=== PATIENT | male | born 1940 | race African-American/Black ===

== ENCOUNTER 2024-02-06 10:23 | Emergency (ER) | payer OTHER, SELFPAY ==
[2024-02-06 10:33] VITALS: BP 146/82
--- NOTE | 2024-02-06 11:38 | ED.GENMED ---
History of Present Illness
General
Chief Complaint: Skin Problem
Source: patient
Exam Limitations: none
Time Seen by Provider: 02/06/24 10:41
Nursing documentation reviewed up to this point in time: agreed with
Travel History
Have you had any contact with someone who has COVID-19?: No
Do you have any symptoms of coronavirus? Fever > 100 degrees, chills, cough, shortness of breath, sore throat, loss of taste or smell, muscle aches, or headache?: No
History of Present Illness
History of Present Illness:
83 y/o M with h/o NIDDM
here with left thumb laceration partial skin avulsion of fingertip when he was at home using a circular saw
no pain, bleeding controlled
no deficits to sensation or movement
he thinks he is UTD on tetanus
and does not wish to get another one
Past History
Past History
ED Past Medical History: Arrthythmia (Atrial fibrillation), HTN, Hypercholesterolemia and NIDDM
Social History
Tobacco: Non-smoker
Drug: None
Review of Systems
Review of Systems
Allergies reviewed?: Yes
All Other Systems: Not applicable
Phy Exam
Physical Exam
Physical Exam:
GENERAL: Alert , in no apparent distress, comfortable at rest
HEAD: NCAT
CV: cp refill intact radial pulse normal
NEUROLOGICAL: Alert and oriented, no focal neuro deficits, , 5/5 strength, sensation intact,
SKIN: Warm and dry, irregular flap partial avulsino
MUSCULOSKELETAL: mild STS right ankle with tenderness to malleolus medially; pain with inversion and eversion;
no tenderness at the base of the 5th metatarsal, no other foot tenderness
no knee/prox tib/fib tenderness, full painless ROM;
PSYCH: Normal and appropriate interaction.
Course
Orders/Labs/Results
Orders:
Orders
02/06/24 10:35
Finger(s)/Thumb 2 View Lt [CR Finger(s)/thumb Min 2 Vw Lt] Urgent
Comment:
Reason For Exam: injury
Indicate Which Finger:: Thumb
02/06/24 12:16
Tetanus/Diphth/Acelpertussis [Adacel] 0.5 ml IM .ONCE ONE
Vital Signs
Initial and Last Documented VS:
Initial Vital Signs
Temp Pulse Resp BP Pulse Ox
98.2 F 84 16 146/82 98
02/06/24 10:33 02/06/24 10:33 02/06/24 10:33 02/06/24 10:33 02/06/24 10:33
Last Documented Vital Signs
Temp Pulse Resp BP Pulse Ox
98.2 F 85 20 129/74 98
02/06/24 10:33 02/06/24 12:44 02/06/24 12:44 02/06/24 12:44 02/06/24 12:44
Procedures
Laceration Closure
Left Thumb:
Status of Wound: clean
Size of Wound in cm: 2.5
Description of Wound Edges: ragged, flap-well vascularized and macerated
Preparation: cleaned with saline
Anesthesia: 1% Lidocaine and Digital-Regional
Revision/Debridement: minor revision and irrigate-direct pressure
Wound exploration: explored to base- no FB and no tendon involvement
Type of Closure: single layer closure
Skin Closure Material: 5-0 nylon
Number of sutures: 6
MDM/Problems Addressed
Differential Diagnosis Includes:
finger laceration, open fracture
MDM/Problems Addressed:
83 y/o M righ thand dominant
dm
here with left fingertip laceration/avulsion from a table saw
normal senstaion/nv intact
xray indep reviewed b yme, no bony involvement
anesthetized with digital block and irrigated/soaked
attempted repair though tissue macerated, did approximate wound
xeroform dressing
wound care instruction
*Critical Care Note
Total Time (30-74mins, 75-104mins- exclusive of procedures): Not Applicable
ED Attending Note
-
Portions of this chart may have been created with voice recognition software.� Occasional wrong word or��sound alike� substitutions may have occurred due to the inherent limitations of voice recognition software.
Discharge Plan
Departure
Patient Disposition: Home (Routine Discharge)
Date of Disposition: 02/06/24
Time of Disposition: 12:16
Patient with high blood pressure during this ER visit?: No
Discharge Problem:
Laceration of thumb
Instructions: Wound Care (DC), Laceration Repair With Stitches ED
Prescriptions:
No Action
ramipril 10 MG capsule
10 mg PO QPM
indapamide 2.5 MG tablet
2.5 mg PO DAILY
aspirin 81 MG tablet,delayed release (DR/EC)
81 mg PO DAILY
atorvastatin 10 MG tablet
10 mg PO QPM
albuterol sulfate 1 PUFF HFA aerosol inhaler
2 puff inhalation R Q4HPRN PRN (Reason: asthma)
Flovent Diskus 50 MCG blister with device
1 puff inhalation PRN PRN (Reason: prn)
glyburide 5 MG tablet
10 mg PO DAILY
glyburide 5 MG tablet
5 mg PO QPM
pediatric multivitamin 1 EACH tablet,chewable
1 ea PO DAILY
prasugrel 10 MG tablet
10 mg PO DAILY Qty: 90 3RF
Rx Instructions:
DO NOT STOP unless cardiology approves
amlodipine 10 MG tablet
10 mg PO DAILY Qty: 90 3RF
metformin 500 MG tablet
500 mg PO BID Qty: 0 0RF
Rx Instructions:
HOLD until lab results reviewed and instructed per phlebotomy lab assistant.
hydrocodone-acetaminophen 1 TABLET tablet
1 tab PO Q4HPRN PRN (Reason: pain) Qty: 12 0RF
metaxalone [Skelaxin] 800 MG tablet
800 mg PO TID Qty: 20 0RF
tramadol 50 mg tablet
50 mg PO Q8H PRN (Reason: pain) Qty: 14 0RF
Referrals:
Ellis Oscar MD [Family Provider] - Follow up in 5-7 days
Activity Restrictions/Additional Instructions:
KEEP THE WOUND CLEAN AND DRY FOR 24 HOURS
AFTER THAT YOU CAN GET IT WET IN THE BATH/SHOWER ONCE A DAY AND MAKE SURE IT IS CLEAN AND THERE IS NO DRIED BLOOD ON THE STITCHES
APPLY NEOSPORIN AND A BANDAID
THE STITCHES NEED TO BE REMOVED IN ABOUT 7-10 DAYS, SEE YOUR DOCTOR FOR THIS.
THE LAST DAY BEFORE STITCHES OUT, NO OINTMENT, LEAVE OPEN TO AIR
WATCH FOR SIGNS OF INFECTION AND RETURN NEEDED FOR PAIN, SWELLING, REDNESS, DRAINAGE, BLEEDING.
TYLENOL NEEDED FOR PAIN.
Interventions
Interventions:
*Risk Screen - Suicide Last Done: 02/06/24 11:00
*General Assessment Last Done: 02/06/24 11:00
*Neglect/Abuse Screening Last Done: 02/06/24 11:00
*Nursing Disposition Last Done: 02/06/24 12:44
ED-Skin Assessment Last Done: 02/06/24 11:00
Discharge Date and Time
Discharge Date/Time: 02/06/24 12:45
Print Language: CITIZEN OF [place]
[2024-02-06] MEDS: ADACEL 0.5 ML IM (12:26)
[2024-02-06 12:44] VITALS: BP 129/74
== END 2024-02-06 12:45 | disposition home or self-care (01) ==
LOC: EMR 10:23
PROVIDERS: EMERGENCY PHYSICIAN Emergency Medicine; FAMILY PHYSICIAN Family Medicine
DX: S61.012A Laceration without foreign body of left thumb without damage to nail, initial encounter (principal); W29.8XXA Contact with other powered hand tools and household machinery, initial encounter; Z23 Encounter for immunization; I48.91 Unspecified atrial fibrillation; I10 Essential (primary) hypertension; E78.00 Pure hypercholesterolemia, unspecified; E11.9 Type 2 diabetes mellitus without complications
CPT/HCPCS: 99283; 90471; 73140; 90715

== ENCOUNTER → 2024-02-23 06:28 | Day surgery (SDC) | payer OTHER, SELFPAY ==
[2024-02-23 07:40] LABS: Glucose - Point of Care 84 mg/dl (70-99)
== END ==
LOC: GI 06:28
PROVIDERS: ATTENDING PHYSICIAN Internal Medicine Gastroenterology; FAMILY PHYSICIAN Family Medicine
DX: D12.2 Benign neoplasm of ascending colon (principal); K57.30 Diverticulosis of large intestine without perforation or abscess without bleeding; K64.8 Other hemorrhoids; R19.7 Diarrhea, unspecified
CPT/HCPCS: 45380; 88305; 82962

== ENCOUNTER 2024-07-09 11:16 | Emergency (ER) | payer OTHER, SELFPAY ==
[2024-07-09 11:20] VITALS: BP 141/79
--- NOTE | 2024-07-09 11:24 | ED.GENMED ---
ED Provider Triage
<Karie Doe PA-C - Last Filed: 07/09/24 16:12>
-
Patient seen by provider in Triage?: Seen in Triage
Attestation: A medical screening examination has been initiated by a qualified medical provider. Based on the assessment performed at this time, it has been determined that an emergent medical condition may exist and the patient has been informed
that further medical evaluation and possible additional diagnostic testing may be needed.
HPI: 83yoM here after a facial injury. Hit his R periorbital area on a doorknob. Seen at urgent care and glue applied to laceration. Sent to the ED for a CT scan. Takes a baby aspirin daily.
GENERAL: Alert , in no apparent distress
EYE: No visual abnormalities.
NECK: Trachea midline
ENT: No visible abnormalities.
LUNGS: No acute respiratory distress
NEUROLOGICAL: Alert and oriented
SKIN: Skin intact. No visible changes.
MUSCULOSKELETAL: Moving extremities normally
PSYCH: Normal and appropriate interaction.
This is a medical evaluation conducted in person to initiate diagnostic evaluation and provide initial therapeutics. Please see further documentation by the treating clinician.
CT head and facial bones ordered.
History of Present Illness
<Karie Doe PA-C - Last Filed: 07/09/24 16:12>
General
Chief Complaint: Fall
Time Seen by Provider: 07/09/24 12:36
<Nabil Garcia MD - Last Filed: 07/09/24 12:48>
General
Source: patient and spouse
Exam Limitations: none
Nursing documentation reviewed up to this point in time: agreed with
History of Present Illness
History of Present Illness:
83-year-old male with past medical history of hypertension, hyperlipidemia, asthma, CAD who presents to the emergency room with his for evaluation after fall with head strike. Patient says that he was walking up the stairs and tripped and fell
forward and struck the right side of his face on a doorknob that was nearby. Did not lose consciousness. Sustained laceration in the right infraorbital region. He has some soreness in this area but denies any other complaints. He denies any loss
of vision. He denies any significant headache or neck pain. Denies any pain in his back, ribs, extremities. He is on aspirin but no other blood thinners. He was seen in urgent care prior to arrival and infraorbital laceration was glued but was
referred to the ER for CT scan. Tetanus shot reportedly up-to-date.
Past History
<Karie Doe PA-C - Last Filed: 07/09/24 16:12>
Past History
ED Past Medical History: Arrthythmia (Atrial fibrillation), HTN, Hypercholesterolemia and NIDDM
Social History
Tobacco: Non-smoker
Drug: None
Review of Systems
<Nabil Garcia MD - Last Filed: 07/09/24 12:48>
Review of Systems
All Other Systems: ROS reviewed and negative except as documented in HPI and ROS
EENT: Denies mouth pain
Cardiac: Denies chest pain
ABD/GI: Denies vomiting
Musculoskeletal: Denies neck pain or back pain
Neurological: Denies headache
Phy Exam
<Nabil Garcia MD - Last Filed: 07/09/24 12:48>
Physical Exam
Physical Exam:
General: Awake, alert, oriented x3; no acute distress
Head: Normocephalic, no cephalhematoma or signs of scalp trauma; he has some bruising in the right infraorbital region and he has a small laceration lateral to the orbit on the right which is still oozing blood, slightly larger but superficial
laceration on the right cheek has been repaired with Dermabond
Eyes: Conjunctiva normal, EOMI, pupils equal round and reactive to light bilaterally
Throat: Airway intact, handling secretions
Neck: Trachea midline, no cervical spine tenderness
Back: No signs of trauma to the back or flank and no tenderness in the thoracic or lumbar spine
Lungs: Breathing comfortably not in distress
Heart: Regular rate
Neuro: No gross deficits, ambulatory
Skin: Skin findings as above
Extremities: Atraumatic, no pain on range of motion, ambulatory and weightbearing
Scores
<Nabil Garcia MD - Last Filed: 07/09/24 12:48>
Heart Failure Risk
Heart Failure Risk Score: Not Applicable
Heart Score for Chest Pain Patients
STEMI patient?: Not applicable
Withdrawal Assessment of Alcohol
Withdrawal Assessment Completed?: Not applicable
Course
<Karie Doe PA-C - Last Filed: 07/09/24 16:12>
Orders/Labs/Results
Orders:
Orders
07/09/24 11:26
CT Facial Bones W/o Iv Contras Urgent
Comment:
Reason For Exam: R periorbital injury
CT Head W/o Iv Contrast Urgent
Comment:
Reason For Exam: Head injury
Vital Signs
Initial and Last Documented VS:
Initial Vital Signs
Temp Pulse Resp BP Pulse Ox
97.8 F 55 18 141/79 100
07/09/24 11:20 07/09/24 11:20 07/09/24 11:20 07/09/24 11:20 07/09/24 11:20
Last Documented Vital Signs
Temp Pulse Resp BP Pulse Ox
97.8 F 65 18 130/73 98
07/09/24 11:20 07/09/24 16:05 07/09/24 16:05 07/09/24 16:05 07/09/24 16:05
<Nabil Garcia MD - Last Filed: 07/09/24 12:48>
Orders/Labs/Results
Orders:
Orders
07/09/24 11:26
CT Facial Bones W/o Iv Contras Urgent
Comment:
Reason For Exam: R periorbital injury
CT Head W/o Iv Contrast Urgent
Comment:
Reason For Exam: Head injury
Vital Signs
Initial and Last Documented VS:
Initial Vital Signs
Temp Pulse Resp BP Pulse Ox
97.8 F 55 18 141/79 100
07/09/24 11:20 07/09/24 11:20 07/09/24 11:20 07/09/24 11:20 07/09/24 11:20
Last Documented Vital Signs
Temp Pulse Resp BP Pulse Ox
97.8 F 65 18 130/73 98
07/09/24 11:20 07/09/24 16:05 07/09/24 16:05 07/09/24 16:05 07/09/24 16:05
<Nabil Garcia MD - Last Filed: 07/09/24 12:48>
MDM/Problems Addressed
Differential Diagnosis Includes:
Facial contusion, facial fracture, intracranial hemorrhage
MDM/Problems Addressed:
83-year-old male presents to the emergency room after a trip and fall with right facial trauma as above. He is on aspirin but no other blood thinners. No other serious injuries reported. Vitals and exam as above. Plan to check CT head and facial
bones. Reassess after the above.
<Nabil Garcia MD - Last Filed: 07/09/24 12:48>
*Pulse Oximetry
Patient hypoxic: no
*Critical Care Note
Total Time (30-74mins, 75-104mins- exclusive of procedures): Not Applicable
Data Reviewed
Source: patient and spouse
ED Attending Note
<Karie Doe PA-C - Last Filed: 07/09/24 16:12>
-
Portions of this chart may have been created with voice recognition software.� Occasional wrong word or��sound alike� substitutions may have occurred due to the inherent limitations of voice recognition software.
Discharge Plan
Departure
Patient Disposition: Home (Routine Discharge)
Date of Disposition: 07/09/24
Time of Disposition: 14:16
Patient with high blood pressure during this ER visit?: No
Discharge Problem:
Periorbital contusion of right eye, Laceration of periorbital area
Instructions: Laceration Repair With Glue (DC), Contusion (DC)
Prescriptions:
No Action
ramipril 10 MG capsule
10 mg PO QPM
indapamide 2.5 MG tablet
2.5 mg PO DAILY
aspirin 81 MG tablet,delayed release (DR/EC)
81 mg PO DAILY
atorvastatin 10 MG tablet
10 mg PO QPM
albuterol sulfate 1 PUFF HFA aerosol inhaler
2 puff inhalation R Q4HPRN PRN (Reason: asthma)
Flovent Diskus 50 MCG blister with device
1 puff inhalation PRN PRN (Reason: prn)
glyburide 5 MG tablet
10 mg PO DAILY
glyburide 5 MG tablet
5 mg PO QPM
pediatric multivitamin 1 EACH tablet,chewable
1 ea PO DAILY
prasugrel 10 MG tablet
10 mg PO DAILY Qty: 90 3RF
Rx Instructions:
DO NOT STOP unless cardiology approves
amlodipine 10 MG tablet
10 mg PO DAILY Qty: 90 3RF
metformin 500 MG tablet
500 mg PO BID Qty: 0 0RF
Rx Instructions:
HOLD until lab results reviewed and instructed per laborer ammunition assembly.
hydrocodone-acetaminophen 1 TABLET tablet
1 tab PO Q4HPRN PRN (Reason: pain) Qty: 12 0RF
metaxalone [Skelaxin] 800 MG tablet
800 mg PO TID Qty: 20 0RF
tramadol 50 mg tablet
50 mg PO Q8H PRN (Reason: pain) Qty: 14 0RF
Referrals:
Dayne,Ellis D., MD [Family Provider] - Keep scheduled appt
Activity Restrictions/Additional Instructions:
Thank you for visiting the Emergency Department at [facility].
1. Please schedule a follow up appointment as directed. Call first thing tomorrow morning to make an appointment.
2. If indicated, please take your medications as instructed and indicated on discharge paperwork.
3. If any of your symptoms do not improve, or persist, or become more severe within 6-12 hours, please return to the emergency department for further care.
4. Please return to the emergency department if you develop a headache, neck pain/stiffness, fever greater than 100.4F, chest pain, shortness of breath, persistent nausea, vomiting, slurred speech, difficulty walking, numbness/tingling, weakness,
signs of infection or any other symptoms that are worrisome to you.
Please call [phone] if you have any questions.
Interventions
Interventions:
*Risk Screen - Suicide Last Done: 07/09/24 11:57
*General Assessment Last Done: 07/09/24 11:57
*Neglect/Abuse Screening Last Done: 07/09/24 11:57
*ED COVID-19 Vaccine History Last Done: 07/09/24 11:57
*Nursing Disposition Last Done: 07/09/24 16:05
ED-Musculoskeletal Assessment Last Done: 07/09/24 11:59
ED- Neurological Assessment Last Done: 07/09/24 11:59
ED-Skin Assessment Last Done: 07/09/24 11:59
Discharge Date and Time
Discharge Date/Time: 07/09/24 15:05
Print Language: [place]
[2024-07-09 16:05] VITALS: BP 130/73
== END 2024-07-09 15:05 | disposition home or self-care (01) ==
LOC: EMR 11:16
PROVIDERS: EMERGENCY PHYSICIAN Emergency Medicine; FAMILY PHYSICIAN Family Medicine
DX: S00.11XA Contusion of right eyelid and periocular area, initial encounter (principal); S09.90XA Unspecified injury of head, initial encounter; W10.9XXA Fall (on) (from) unspecified stairs and steps, initial encounter; Y93.01 Activity, walking, marching and hiking; I10 Essential (primary) hypertension; E78.00 Pure hypercholesterolemia, unspecified; J45.909 Unspecified asthma, uncomplicated; I25.10 Atherosclerotic heart disease of native coronary artery without angina pectoris; E11.9 Type 2 diabetes mellitus without complications; I48.91 Unspecified atrial fibrillation; Z79.82 Long term (current) use of aspirin
CPT/HCPCS: 99284; 12011; 70450; 70486

== ENCOUNTER → 2024-09-12 07:46 | Outpatient (REF) | payer OTHER, SELFPAY | LOC: RAD 07:46 | PROVIDERS: ATTENDING PHYSICIAN Internal Medicine Cardiovascular Disease; FAMILY PHYSICIAN Family Medicine | DX: I73.9 Peripheral vascular disease, unspecified (principal) | CPT/HCPCS: 93922; 93925 ==

== ENCOUNTER → 2025-04-14 07:59 | Outpatient (REF) | payer OTHER, SELFPAY | LOC: RAD 07:59 | PROVIDERS: ATTENDING PHYSICIAN Surgery Vascular Surgery; FAMILY PHYSICIAN Family Medicine | DX: I73.9 Peripheral vascular disease, unspecified (principal) | CPT/HCPCS: 76770; 93880; 93922 ==

== ENCOUNTER → 2025-08-19 10:16 | Outpatient (REF) | payer OTHER, SELFPAY | LOC: EMG 10:16 | PROVIDERS: ATTENDING PHYSICIAN Specialist; FAMILY PHYSICIAN Family Medicine | DX: M25.512 Pain in left shoulder (principal); R20.2 Paresthesia of skin; M75.42 Impingement syndrome of left shoulder; R20.0 Anesthesia of skin | CPT/HCPCS: 95886; 95909 ==